=== PATIENT | female | born 1995 | race Caucasian/White ===

== ENCOUNTER 2022-01-25 13:51 | Emergency (ER) | payer MEDICAID ==
[2022-01-25 15:14] LABS: HEMOGLOBIN 14.2 gm/dl (12.3-15.3); RED BLOOD COUNT 5.43 M/UL (4.00-5.10); WHITE BLOOD COUNT 11.4 K/UL (4.5-11.0)
[2022-01-25 15:43] LABS: BUN/CREATININE RATIO 15 (0-10)
[2022-01-25] MEDS ORDERED: IBUPROFEN800 MG PO (17:51)
[2022-01-25] MEDS ORDERED: CYCLOBENZAPRINE10 MG PO (17:51)
== END 2022-01-25 18:40 | disposition home or self-care (01) ==
LOC: ER1 13:51
DX: S16.1XXA Strain of muscle, fascia and tendon at neck level, initial encounter (principal); F17.290 Nicotine dependence, other tobacco product, uncomplicated; X50.0XXA Overexertion from strenuous movement or load, initial encounter
CPT/HCPCS: 71045; 72040; 72070; 80053; 82550; 82553; 84484; 85025; 93005; 96372; 99284; J1885; J3360